=== PATIENT | female | born 1985 | race Caucasian/White ===

== ENCOUNTER 2020-10-22 11:13 | Inpatient (IN) ==
--- OUTSIDE RECORDS SUMMARY | 2020-10-22 11:16 | External Medical Summary | Continuity of Care Document ---
:1985 Author Name Stephy Jain, Provider Address Unavailable Unavailable , Care Team Providers Name Role Phone Bryn Jain, [email or web address] Unavailable Unavailable Assessments Assessed Problems:Acute appendicitis Problems Migraine headache (346.90) (G43.909) Acute appendicitis (540.9) (K35.80) Allergies and Adverse Reactions No Known Drug Allergies (Allergy) Medications Maxalt 10 MG Oral Tablet Start: 015 Refills: 0 Ventolin HFA 108 (90 Base) MCG/ACT Inhalation Aerosol Soluti on; as directed Start: 09-Jul-2015 Refills: 0 Procedures History of Section Status: Comp leted History of Laparoscopic Appendectomy Sta tus: Completed 16-Jun-2015 0:00 Immunizations Immunizations not documented Family History Mother Family history of cardiac disorder (V17.49) (Z82.49) Status: Active Social History - Smoking Status Never smoked tobacco Plan of Treatment Planned Observations Planned Goals not documented Results No Known Results Results not documented Encounters Appointment; David Clemente M.D. 09-Jul-2015 11:20 Encounter Diagnosis: Problem not documented
[2020-10-22] MEDS ORDERED: LORazepam 0.5 MG/1 ML VIAL IV STA ×2 (11:39→21:37)
[2020-10-22] MEDS ORDERED: LEVALBUTEROL 1.25MG/0.5ML NEB INH SCH ×2 (11:45→13:30)
[2020-10-22] MEDS ORDERED: IPRATROPIUM BROMIDE NEB SOLN 0.02% 2.5 ML VIAL INH SCH ×2 (11:45→13:30)
[2020-10-22] MEDS: MAGNESIUM SULFATE / D5W 1 GM/100 ML BAG IV SCH ×2 (12:01→12:09)
[2020-10-22] MEDS: LEVALBUTEROL 1.25MG/0.5ML NEB INH SCH ×3 (12:12→19:37)
[2020-10-22] MEDS: IPRATROPIUM BROMIDE NEB SOLN 0.02% 2.5 ML VIAL INH SCH ×3 (12:13→19:37)
[2020-10-22 12:17] LABS: Basophils # (auto) 0.06 K/uL (0-0.2); Basophils % (auto) 0.5 %; Eosinophils # (auto) 0.13 K/uL (0-0.5); Hematocrit (blood only) 39.4 % (37-47); Hemoglobin 12.9 g/dL (12.0-16.0); Immature Granulocytes # (auto) 0.02 K/uL (0.00-0.02); Immature Granulocytes % (auto) 0.2 %; Lymphocytes # (auto) 0.75 K/uL (1.2-3.4); Lymphocytes % (auto) 5.6 %; Mean Corpuscular Hgb Conc 32.7 g/dL (32-36); Mean Corpuscular Volume 76.4 fL (80-100); Mean Platelet Volume 10.3 fL (7.4-10.4); Monocytes # (auto) 0.84 K/uL (0.11-0.59); Monocytes % (auto) 6.3 %; Neutrophils # (auto) 11.48 K/uL (1.4-6.5); Neutrophils % (auto) 86.4 %; Platelet Count 335 K/uL (130-400); RDW Coefficient of Variation 16.2 % (11.5-14.5); RDW Standard Deviation 44.5 fL (36.4-46.3); Red Blood Count 5.16 M/uL (4.2-5.4); White Blood Count 13.28 K/uL (4.8-10.8)
--- NOTE | 2020-10-22 12:29 | Emergency Department Note ---
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 Home Medications Medication Instructions Recorded Confirmed Type albuterol sulfate 2 inh INHALATION Q4H PRN 10/22/20 10/22/20 History Allergies Allergy/AdvReac Type Severity Reaction Status Date / Time No Known Allergies Allergy Unverified 07/08/13 19:58 Past Med/Surg History Medical History (Updated 10/22/20 @ 16:48 by Brian Mark) Asthma Migraine Surgical History S/P appendectomy Family History Mother Coronary heart disease Father Asthma Social History Smoking Status: Never smoker Hx Alcohol Use: No Hx Substance Use: No Preferred Language: Yoruba Communication Ability: Effective Service Dismantler Required: No Beliefs That Will Affect Care: None Current Living Situation: Spouse and Family Current Living Situation Comment: and 2, kids 13 and 9 Other Information That Helps Us Care for You: No Feels Safe at Home: Yes Safety Concerns: Feels Safe At This Time Assistive Devices: Glasses Review of Systems A total of 10 systems reviewed and were otherwise negative Physical Exam Vital Signs: Vital Signs - 24 hr 10/22/20 11:09 10/22/20 11:11 10/22/20 11:33 Temperature 37.3 C Temperature Source Oral Pulse Rate 153 H Pulse Rate [Finger ] Pulse Rate from Sp O2 Sensor Respiratory Rate 32 H Respiratory Effort / Characteristics Labored Spontaneous Labore d Short of Breath Tripoding Respiratory Depth Respiratory Patter n Tachypnea Blood Pressure 134/91 Blood Pressure Bethany n 105 Pulse Oximetry 89 L 95 Oxygen Delivery Me thod Room Air Nasal Cannula Oxygen Flow Rate 4 Fraction of Inspir ed Oxygen Sepsis Recent Feve r Within 48 Hours No Sepsis New/Unexpla ined Change in Men ra Status No Sepsis Action Take n by Nursing Physician Notified 10/22/20 11:40 10/22/20 12:11 10/22/20 12:14 Temperature Temperature Source Pulse Rate 151 H 137 H Pulse Rate [Finger ] 149 H Pulse Rate from Sp O2 Sensor 154 H 139 H Respiratory Rate 26 H 25 H 24 Respiratory Effort / Characteristics Spontaneous Respiratory Depth Respiratory Patter n Blood Pressure 134/91 121/88 Blood Pressure Bethany n 107 96 Pulse Oximetry 93 98 93 Oxygen Delivery Me thod Nasal Cannula Nasal Cannula Nasal Cannula Oxygen Flow Rate 4 4 5 Fraction of Inspir ed Oxygen Sepsis Recent Feve r Within 48 Hours Sepsis New/Unexpla ined Change in Men ra Status Sepsis Action Take n by Nursing 10/22/20 12:15 10/22/20 12:17 10/22/20 12:30 Temperature Temperature Source Pulse Rate 136 H 155 H Pulse Rate [Finger ] 139 H Pulse Rate from Sp O2 Sensor 153 H Respiratory Rate 20 20 24 Respiratory Effort / Characteristics Spontaneous Spontaneous Respiratory Depth Respiratory Patter n Blood Pressure 117/93 Blood Pressure Bethany n 105 Pulse Oximetry 98 97 95 Oxygen Delivery Me thod BiPAP BiPAP Oxygen Flow Rate Fraction of Inspir ed Oxygen 35 35 Sepsis Recent Feve r Within 48 Hours Sepsis New/Unexpla ined Change in Men ra Status Sepsis Action Take n by Nursing 10/22/20 13:00 10/22/20 13:30 10/22/20 13:49 Temperature Temperature Source Pulse Rate 134 H 131 H Pulse Rate [Finger ] 120 H Pulse Rate from Sp O2 Sensor 132 H 133 H Respiratory Rate 24 20 21 Respiratory Effort / Characteristics Non-Labored Sponta neous Respiratory Depth Respiratory Patter n Blood Pressure 115/87 102/75 Blood Pressure Bethany n 94 81 Pulse Oximetry 95 97 98 Oxygen Delivery Me thod BiPAP BiPAP BiPAP Oxygen Flow Rate Fraction of Inspir ed Oxygen 35 Sepsis Recent Feve r Within 48 Hours Sepsis New/Unexpla ined Change in Men ra Status Sepsis Action Take n by Nursing 10/22/20 13:50 10/22/20 14:00 10/22/20 14:30 Temperature Temperature Source Pulse Rate 125 H 122 H 106 H Pulse Rate [Finger ] Pulse Rate from Sp O2 Sensor 129 H 107 H Respiratory Rate 21 19 22 Respiratory Effort / Characteristics Non-Labored Sponta neous Respiratory Depth Normal Respiratory Patter n Blood Pressure 116/80 113/80 Blood Pressure Bethany n 91 91 Pulse Oximetry 98 96 95 Oxygen Delivery Me thod BiPAP BiPAP Oxygen Flow Rate Fraction of Inspir ed Oxygen 35 Sepsis Recent Feve r Within 48 Hours Sepsis New/Unexpla ined Change in Men ra Status Sepsis Action Take n by Nursing Physical Exam: Physical Exam GENERAL: Distressed. EYES: Conjunctivae and EOM are normal. Pupils are equal, round, and reactive to light. Right eye exhibits no discharge. Left eye exhibits no discharge. No scleral icterus. NECK: Normal range of motion. Neck supple. No JVD present. No spinous process tenderness present. No carotid bruit present. No rigidity. No tracheal deviation and normal range of motion present. No Brudzinski's sign and no Kernig's sign noted. CV: Tachycardic rate, regular rhythm, normal heart sounds and intact distal pulses. There is no peripheral edema. Palpable radial pulses bue. PULM/CHEST: Tachypneic. Respiratory distress. Diffuse bilateral expiratory wheezes. ABD: The abdomen is soft. Bowel sounds are normal. She has no distension. No mass is present. There is no tenderness. There is no rebound, no guarding, no Woods's sign and no tenderness at McBurney's point. Rovsig negative MUSC/SKEL: Normal range of motion. There is no peripheral edema, tenderness or deformity. NEURO: Motor and sensation grossly intact. Course Course 1117: The patient was evaluated in room B8. A complete history and physical exam was performed. Patient was seen in full airborne precautions. Patient was seen in N95's, gloves, gowns, face shield by myself and staff. Patient was placed on continuous pulse oximeter and monitoring tech. Patient was found to be tachycardic with a heart rate between 150 and 160. Patient was found to be hypoxic on room air on 89%. Patient was started on nasal cannula supplemental oxygen which improved her oxygen saturation. Patient's is very tachypneic. Patient will be started on BiPAP to decrease her work of breathing. Patient was also be given Xopenex and Atrovent treatments. Patient also be given magnesium sulfate 2 g IV to help with her asthma exacerbation. Ativan also ordered for the patient. Solu-Medrol was already given by EMS. Cardiac monitoring: An order was placed for continuous cardiac monitoring. The monitor shows a rate of 155 with sinus tachycardia rhythm 1340: Vital signs much improved. Patient's heart rate is now 110. Blood pressure stable. Patient is tolerating BiPAP well. Oxygen saturation is 98% on BiPAP. Patient reports she feels much better on BiPAP and after receiving Xopenex and Atrovent treatments. She is not as tachypneic and no longer having labored breathing. On repeat lung exam the patient continues to have expiratory wheezes. Patient will be given repeat Xopenex and Atrovent treatments. Labs show leukocytosis of 13.28. Potassium 3.3. The patient's COVID-19, influenza, RSV, and chest x-ray are negative. Is thought that the patient is suffering from status asthmaticus. [facility] be continued on Bi[facility]AP [facility]. Administered Medications Potassium Chloride/Sodium Chloride (Normal Saline W/20 Meq Kcl) 20 meq in 1,000 mls @ 150 mls/hr IV .Q6H40M [facility] Stop: 11/21/20 16:14 Last Admin: 10/22/20 16:24 Dose: 150 mls/hr Documented by: [id number] Discontinued Medications Azithromycin (Azithromycin 250 Mg Tab) 500 mg PO NOW ONE Stop: 10/22/20 16:02 Last Admin: 10/22/20 16:23 Dose: 500 mg Documented by: [id number] Magnesium Sulfate/Dextrose (Magnesium Sulfate / D5w) 1 gm in 100 mls @ 600 mls/hr IV Q10M [facility] Stop: 10/22/20 11:55 Last Infusion: 10/22/20 12:29 Dose: 0 mls/hr Documented by: [id number] Admin: 10/22/20 12:09 Dose: 600 mls/hr Documented by: [id number] Infusion: 10/22/20 12:09 Dose: 600 mls/hr Documented by: [id number] Admin: 10/22/20 12:01 Dose: 600 mls/hr Documented by: [id number] Lorazepam (Ativan) 0.5 mg in 1 mls @ 1 mls/min IV NOW STA Stop: 10/22/20 11:40 Last Admin: 10/22/20 12:09 Dose: 1 mls/min Documented by: [id number] Meropenem 500 mg/ Syringe 10 mls @ 2 mls/min IV Q6H [facility]; Protocol Stop: 11/01/20 12:59 Last Admin: 10/22/20 13:30 Dose: 2 mls/min Documented by: [id number] Ipratropium [place] (Ipratropium [place] Neb Soln 0.02% 2.5 Ml Vial) 0.5 mg INH UD [facility] Stop: 11/21/20 11:44 Last Admin: 10/22/20 12:19 Dose: 0.5 mg Documented by: [id number] Admin: 10/22/20 12:13 Dose: 0.5 mg Documented by: [id number] Ipratropium [place] (Ipratropium [place] Neb Soln 0.02% 2.5 Ml Vial) 0.5 mg INH UD [place] Stop: 11/21/20 13:29 Last Admin: 10/22/20 13:49 Dose: 0.5 mg Documented by: [id number] Levalbuterol HCl (Levalbuterol 1.25mg/0.5ml Neb) 1.25 mg INH UD [facility] Stop: 11/21/20 11:44 Last Admin: 10/22/20 12:19 Dose: 1.25 mg Documented by: [id number] Admin: 10/22/20 12:12 Dose: 1.25 mg Documented by: [id number] Levalbuterol HCl (Levalbuterol 1.25mg/0.5ml Neb) 1.25 mg INH UD [place] Stop: 11/21/20 13:29 Last Admin: 10/22/20 13:48 Dose: 1.25 mg Documented by: [id number] Miscellaneous (Xopenex/Atrovent 1.25mg/0.5mg Neb Combo) 1 ea NEB Q6R [facility] Stop: 11/21/20 12:59 Last Admin: 10/22/20 12:20 Dose: Not Given Documented by: [id number] Miscellaneous (Xopenex/Atrovent 1.25mg/0.5mg Neb Combo) 1 ea NEB Q6R [facility] Stop: 11/21/20 12:59 Last Admin: 10/22/20 12:19 Dose: Not Given Documented by: [id number] Potassium Chloride (Potassium Chloride Crtab 20 Meq Tabcr) 20 meq PO NOW ONE Stop: 10/22/20 16:02 Last Admin: 10/22/20 16:24 Dose: 20 meq Documented by: [id number] Medical Decision Making Laboratory Data Result diagrams: 10/22/20 12:06 10/22/20 12:06 Lab Results 10/22/20 10/22/20 10/22/20 Range/Units 11:49 11:49 12:06 WBC 13.28 H (4.8-10.8) K/uL RBC 5.16 (4.2-5.4) M/uL Hgb 12.9 (12.0-16.0) g/dL Hct 39.4 (37-47) % MCV 76.4 L (80-100) fL MCH 25.0 (25-34) pg MCHC 32.7 (32-36) g/dL RDW Std Deviation 44.5 (36.4-46.3) fL RDW Coeff of Apolinar 16.2 H (11.5-14.5) % Plt Count 335 (130-400) K/uL MPV 10.3 (7.4-10.4) fL Immature Gran % (Auto) 0.2 % Neut % (Auto) 86.4 % Lymph % (Auto) 5.6 % Carlton % (Auto) 6.3 % Eos % (Auto) 1.0 % Baso % (Auto) 0.5 % Neut # (Auto) 11.48 H (1.4-6.5) K/uL Lymph # (Auto) 0.75 L (1.2-3.4) K/uL Carlton # (Auto) 0.84 H (0.11-0.59) K/uL Eos # (Auto) 0.13 (0-0.5) K/uL Baso # (Auto) 0.06 (0-0.2) K/uL Immature Gran # (Auto) 0.02 (0.00-0.02) K/uL VBG pH (7.36-7.41) VBG pCO2 (38-50) mmHg VBG pO2 mmHg VBG HCO3 mmol/L VBG O2 Saturation % VBG Base Excess mEq/L Barometric Pressure mm/Hg Sodium (136-145) mmol/L Potassium (3.5-5.1) mmol/L Chloride (98-107) mmol/L Carbon Dioxide (21-32) mmol/L Anion Gap (3-11) BUN (7-18) mg/dl Creatinine (0.6-1.2) mg/dl Est Cr Clr Drug Dosing Est GFR ( Amer) Est GFR (Non-Af Amer) BUN/Creatinine Ratio (10-20) Glucose (70-99) mg/dl Lactate (0.4-2.0) mmol/L Calcium (8.5-10.1) mg/dl Magnesium (1.8-2.4) mg/dl Troponin I (0-0.045) ng/ml Specimen Hemolysis COVID-19 Eval Order CovFluRsv at [facility] COVID-19 PCR NEGATIVE (Negative) Influenza Type A (PCR) Negative (Neg) Influenza Type B (PCR) Negative (Neg) RSV (RT-PCR) Negative (Neg) 10/22/20 10/22/20 10/22/20 Range/Units 12:06 12:44 12:44 WBC (4.8-10.8) K/uL RBC (4.2-5.4) M/uL Hgb (12.0-16.0) g/dL Hct (37-47) % MCV (80-100) fL MCH (25-34) pg MCHC (32-36) g/dL RDW Std Deviation (36.4-46.3) fL RDW Coeff of Apolinar (11.5-14.5) % Plt Count (130-400) K/uL MPV (7.4-10.4) fL Immature Gran % (Auto) % Neut % (Auto) % Lymph % (Auto) % Carlton % (Auto) % Eos % (Auto) % Baso % (Auto) % Neut # (Auto) (1.4-6.5) K/uL Lymph # (Auto) (1.2-3.4) K/uL Carlton # (Auto) (0.11-0.59) K/uL Eos # (Auto) (0-0.5) K/uL Baso # (Auto) (0-0.2) K/uL Immature Gran # (Auto) (0.00-0.02) K/uL VBG pH 7.35 L (7.36-7.41) VBG pCO2 43 (38-50) mmHg VBG pO2 31 mmHg VBG HCO3 23 mmol/L VBG O2 Saturation < 60.0 % VBG Base Excess -2.4 mEq/L Barometric Pressure 734.0 mm/Hg Sodium 139 (136-145) mmol/L Potassium 3.3 L (3.5-5.1) mmol/L Chloride 108 H (98-107) mmol/L Carbon Dioxide 26 (21-32) mmol/L Anion Gap 5.0 (3-11) BUN 6 L (7-18) mg/dl Creatinine 0.75 (0.6-1.2) mg/dl Est Cr Clr Drug Dosing Not Reportable Est GFR ( Amer) 120.5 Est GFR (Non-Af Amer) 104.0 BUN/Creatinine Ratio 7.4 L (10-20) Glucose 100 H (70-99) mg/dl Lactate 2.0 (0.4-2.0) mmol/L Calcium 8.9 (8.5-10.1) mg/dl Magnesium 2.3 (1.8-2.4) mg/dl Troponin I < 0.015 (0-0.045) ng/ml Specimen Hemolysis COVID-19 Eval Order COVID-19 PCR (Negative) Influenza Type A (PCR) (Neg) Influenza Type B (PCR) (Neg) RSV (RT-PCR) (Neg) Imaging Data Radiologist's Impression: XR chest 1V portable HISTORY: 35 years-old Female addi acute shortness of breath COMPARISON: CT abdomen pelvis 06/15/2015 TECHNIQUE: Portable AP view of the chest FINDINGS: Cardiomediastinal and hilar silhouettes are within normal limits. No pneumothorax, pleural effusion, airspace consolidation or overt pulmonary edema. Bones of the chest appear grossly intact. IMPRESSION: No acute process. ACT 112: Negative or not required by law. The above report was generated using voice recognition software. It may contain grammatical, syntax or spelling errors. Electronically signed by: Antonio Schaffer M.D. 10/22/2020 1:20 PM Dictated: 10/22/201318Transcribed: 10/22/201318 ECG Data Attestation: I personally reviewed and interpreted this ECG as follows: (EKG#1 at 1124: Sinus tachycardia with a rate of 149. No ST elevation or ST depression. Baseline wander due to patient difficulty breathing. EKG #2 at 1321: Sinus tachycardia with a rate of 123. RI QRS and QTc intervals within normal limits. No ST elevation or ST depression.) [facility] Narrative 1117: The patient was evaluated in room B8. A complete history and physical exam was performed. Patient was seen in full airborne precautions. Patient was seen in N95's, gloves, gowns, face shield by myself and staff. Patient was placed on continuous pulse oximeter and monitoring tech. Patient was found to be tachycardic with a heart rate between 150 and 160. Patient was found to be hypoxic on room air on 89%. Patient was started on nasal cannula supplemental oxygen which improved her oxygen saturation. Patient's is very tachypneic. Patient will be started on BiPAP to decrease her work of breathing. Patient was also be given Xopenex and Atrovent treatments. Patient also be given magnesium sulfate 2 g IV to help with her asthma exacerbation. Ativan also ordered for the patient. Solu-Medrol was already given by EMS. Cardiac monitoring: An order was placed for continuous cardiac monitoring. The monitor shows a rate of 155 with sinus tachycardia rhythm 1340: Vital signs much improved. Patient's heart rate is now 110. Blood pressure stable. Patient is tolerating BiPAP well. Oxygen saturation is 98% on BiPAP. Patient reports she feels much better on BiPAP and after receiving Xo penex and Atrovent treatments. She is not as tachypneic and no longer having labored breathing. On repeat lung exam the patient continues to have expiratory wheezes. Patient will be given repeat Xopenex and Atrovent treatments. Labs show leukocytosis of 13.28. Potassium 3.3. The patient's COVID-19, influenza, RSV, and chest x-ray are negative. Is thought that the patient is suffering from status asthmaticus. Patient will be continued on BiPAP [facility]. Impression & Plan Hypoxia, Status asthmaticus Critical Care Time Critical Care Time: Yes Total Critical Care Time: 74 I have personally spent greater than 74 minutes of critical care time in the direct management of this patient. This includes bedside care, interpretation of diagnostic studies, and testing, discussion with consultants, patient, and family members, and other required patient management activities. This 74 m inutes is in excess of all separately billable procedures. Discharge Plan Visit Data Chief Complaint: Shortness of Breath/Dyspnea Stated Complaint: SOB hx asthma ED Provider: Brian Mark Discharge Problem: Hypoxia, Status asthmaticus Patient Disposition: Admitted As Inpatient Discharge Instructions Interventions: ED Discharge Assessment Last Done: 10/22/20 15:56 Discharge Problem: Status asthmaticus Qualifiers: Asthma severity: severe Asthma persistence: persistent Qualified Code(s): J45.52 - Severe persistent asthma with status asthmaticus
[2020-10-22 12:35] LABS: BUN Creatinine Ratio 7.4 (10-20); Blood Urea Nitrogen 6 mg/dl (7-18); Calcium 8.9 mg/dl (8.5-10.1); Carbon Dioxide 26 mmol/L (21-32); Chloride 108 mmol/L (98-107); Est GFR (African American) 120.5; Glucose 100 mg/dl (70-99); Magnesium 2.3 mg/dl (1.8-2.4); Potassium 3.3 mmol/L (3.5-5.1); Sodium 139 mmol/L (136-145)
[2020-10-22 12:46] LABS: Influenza A virus by PCR Negative (Neg); Influenza B virus by PCR Negative (Neg); RSV by PCR Negative (Neg); SARS CoV2 RNA(COVID-19) InHosp NEGATIVE (Negative)
[2020-10-22 12:47] LABS: Troponin I < 0.015 ng/ml (0-0.045)
[2020-10-22] MEDS ORDERED: MEROPENEM CONSULT ACITVE PRN (12:48)
[2020-10-22] MEDS ORDERED: MEROPENEM 500 MG in SYRINGE 0 ML IV SCH (13:00)
[2020-10-22] MEDS ORDERED: XOPENEX/ATROVENT 1.25mg/0.5MG NEB COMBO NEB SCH ×4 (13:00→19:00)
[2020-10-22 13:09] LABS: Base Excess VBG -2.4 mEq/L; HCO3 VBG 23 mmol/L; PCO2 VBG 43 mmHg (38-50); PO2 VBG 31 mmHg; pH VBG 7.35 (7.36-7.41)
--- NOTE | 2020-10-22 13:21 | XRay Report ---
XR chest 1V portable HISTORY: 35 years-old Female addi acute shortness of breath COMPARISON: CT abdomen pelvis 06/15/2015 TECHNIQUE: Portable AP view of the chest FINDINGS: Cardiomediastinal and hilar silhouettes are within normal limits. No pneumothorax, pleural effusion, airspace consolidation or overt pulmonary edema. Bones of the chest appear grossly intact. IMPRESSION: No acute process. ACT 112: Negative or not required by law. The above report was generated using voice recognition software. It may contain grammatical, syntax o r spelling errors. Electronically signed by: Antonio Schaffer M.D. 10/22/2020 1:20 PM
[2020-10-22 13:38] LABS: Oxygen Saturation VBG < 60.0 %
--- NOTE | 2020-10-22 14:47 | History & Physical Report ---
Date of Service October 22, 2020 Assessment & Plan (1) Exacerbation of asthma: Exacerbation of asthma. Very bronchospastic and tachypneic at time of presentation. Hypoxic with O2 sat of 89% on RA. Somewhat better after receiving nebs, IV methylprednisolone, BiPAP. Clinical history suggests a viral infection. Resp panel for SARS-CoV-2, influenza A&B, and RSV negative. No infiltrates on chest x-ray. Consider additional testing for respiratory track pathogens with [employer] resp panel if status worsens. Continue nebs, steroids, O2. Received meropenem in ED. Low risk for gram negative infections. Will treat with azithromycin for possible bacterial infection. Continue supplemental O2 as needed. Continue BiPAP as needed. Monitor peak expiratory flow rates. (2) Hypokalemia: K 3.3. PO and IV repletion. Follow. (3) DVT prophylaxis: Low-moderate risk for VTE. SQ enoxaparin. Ambulate. (4) Discharge planning issues: Anticipated discharge to home. Primary care follow-up with Dr. Rodriguez. History of Present Illness Chief Complaint: wheezing, SOB Primary Care Provider: Gurwinder Rodriguez MD 35 YO female followed by Dr. Rodriguez for primary care. History of asthma. Never intubated. Exacerbations usually triggered by seasonal allergies or chemical irritants. Last severe exacerbation was years ago. 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 No known sick contacts among patients or family. Developed rhinorrhea and pharyngitis 3 days prior to admission. Subsequently developed cough, wheezing, dyspnea. No fever. No chest pain. No nausea, vomiting, diarrhea. No myalgias. Tried albuterol inhaler without much benefit. Cough, wheezing, shortness of breath much worse today. Called EMS. Received O2, Duoneb, IV methylprednisolone. Upon arrival to ED she was tachypneic, tachycardic, and hypoxic (89% on RA). BiPAP was applied. She received levalbuterol / ipratropium nebs and IV magnesium sulfate with some improvement of her symptoms. Allergies Allergy/AdvReac Type Severity Reaction Status Date / Time No Known Allergies Allergy Unverified 07/08/13 19:58 Home Medications Medication Instructions Recorded Confirmed Type albuterol sulfate 2 inh INHALATION Q4H PRN 10/22/20 10/22/20 History Past Med/Surg History Medical History Asthma Migraine Surgical History S/P appendectomy Family History Mother Coronary heart disease Father Asthma Social History Smoking Status: Never smoker Hx Alcohol Use: No Hx Substance Use: No Preferred Language: Pashto Communication Ability: Effective Arson Investigator Required: No Beliefs That Will Affect Care: None Current Living Situation: Spouse and Family Current Living Situation Comment: and 2, kids 13 and 9 Other Information That Helps Us Care for You: No Feels Safe at Home: Yes Safety Concerns: Feels Safe At This Time Assistive Devices: Glasses Review of Systems Constitutional: as per Subjective / HPI Eyes: no worsening vision Ear, Nose, Mouth, Throat: as per Subjective / HPI Respiratory: as per Subjective / HPI Cardiovascular: no chest pain Gastrointestinal: no nausea, no vomiting, no constipation, no diarrhea/loose stools, no blood in stools and no melena Genitourinary: no dysuria Musculoskeletal: no joint pain and no myalgia Integumentary: no rash Neurologic: + headache(s) (migraine) Endocrine: no polydipsia and no polyuria Hematologic / Lymphatic: no easy bleeding, no easy bruising and no lymphadenopathy Physical Exam Physical Exam: VS- as noted Constitutional- well nourished; tachypneic, wearing BiPAP Eyes- PERRL, anicteric sclerae, conjunctivae normal ENMT- external ear and nose normal; oropharynx clear; dentition good Neck- trachea midline; no thyromegaly Respiratory- diffuse moderate wheezing with prolonged expiration Cardiovascular- RRR, tachycardic, no murmur/gallop/rub; no JVD; no pretibial edema; normal capillary refill Abdomen- normal bowel sounds, soft, nontender, nondistended; no palpable masses or hepatosplenomegaly Musculoskeletal- no cyanosis Skin- warm & dry; normal color; no rashes Psychiatric- alert, oriented x 3; normal affect Lymphatic- no cervical adenopathy Results & Data Results & Data ([facility]) Vital Signs (Past 12 Hours) Vital Signs Temp Pulse Pulse Resp BP Pulse Ox 10/22/20 14:00 122 H 19 116/80 96 10/22/20 13:50 125 H 21 98 10/22/20 13:49 120 H 21 98 10/22/20 13:30 131 H 20 102/75 97 10/22/20 13:00 134 H 24 115/87 95 10/22/20 12:30 155 H 24 117/93 95 10/22/20 12:17 139 H 20 97 10/22/20 12:15 136 H 20 98 10/22/20 12:14 149 H 24 93 10/22/20 12:11 137 H 25 H 121/88 98 10/22/20 11:40 151 H 26 H 134/91 93 10/22/20 11:33 95 10/22/20 11:09 37.3 C 153 H 32 H 134/91 89 L Laboratory Results Laboratory Results - last 24 hr 10/22/20 10/22/20 10/22/20 11:49 11:49 12:06 WBC 13.28 H RBC 5.16 Hgb 12.9 Hct 39.4 MCV 76.4 L MCH 25.0 MCHC 32.7 RDW Std Deviation 44.5 RDW Coeff of Apolinar 16.2 H Plt Count 335 MPV 10.3 Immature Gran % (Auto) 0.2 Neut % (Auto) 86.4 Lymph % (Auto) 5.6 Williams % (Auto) 6.3 Eos % (Auto) 1.0 Baso % (Auto) 0.5 Neut # (Auto) 11.48 H Lymph # (Auto) 0.75 L Williams # (Auto) 0.84 H Eos # (Auto) 0.13 Baso # (Auto) 0.06 Immature Gran # (Auto) 0.02 VBG pH VBG pCO2 VBG pO2 VBG HCO3 VBG O2 Saturation VBG Base Excess Barometric Pressure Sodium Potassium Chloride Carbon Dioxide Anion Gap BUN Creatinine Est Cr Clr Drug Dosing Est GFR ( Amer) Est GFR (Non-Af Amer) BUN/Creatinine Ratio Glucose Lactate Calcium Magnesium Troponin I Specimen Hemolysis COVID-19 Eval Order [facility] at [facility] COVID-19 PCR NEGATIVE Influenza Type A (PCR) Negative Influenza Type B (PCR) Negative RSV (RT-PCR) Negative 10/22/20 10/22/20 10/22/20 12:06 12:44 12:44 WBC RBC Hgb Hct MCV MCH MCHC RDW Std Deviation RDW Coeff of Apolinar Plt Count MPV Immature Gran % (Auto) Neut % (Auto) Lymph % (Auto) Williams % (Auto) Eos % (Auto) Baso % (Auto) Neut # (Auto) Lymph # (Auto) Williams # (Auto) Eos # (Auto) Baso # (Auto) Immature Gran # (Auto) VBG pH 7.35 L VBG pCO2 43 VBG pO2 31 VBG HCO3 23 VBG O2 Saturation < 60.0 VBG Base Excess -2.4 Barometric Pressure 734.0 Sodium 139 Potassium 3.3 L Chloride 108 H Carbon Dioxide 26 Anion Gap 5.0 BUN 6 L Creatinine 0.75 Est Cr Clr Drug Dosing Not Reportable Est GFR ( Amer) 120.5 Est GFR (Non-Af Amer) 104.0 BUN/Creatinine Ratio 7.4 L Glucose 100 H Lactate 2.0 Calcium 8.9 Magnesium 2.3 Troponin I < 0.015 Specimen Hemolysis COVID-19 Eval Order COVID-19 PCR Influenza Type A (PCR) Influenza Type B (PCR) RSV (RT-PCR) Diagnostic Findings PORTABLE CHEST X-RAY Reviewed by the undersigned and formally interpreted by Radiology: FINDINGS: Cardiomediastinal and hilar silhouettes are within normal limits. No pneumothorax, pleural effusion, airspace consolidation or overt pulmonary edema. Bones of the chest appear grossly intact. IMPRESSION: No acute process. Electronically signed by: Antonio Schaffer M.D. 10/22/2020 1:20 PM ECG Additional Comments: EKG performed at 1124 reviewed and demonstrated narrow complex tachycardia at 150 / min, slight ST depression in inferior and lateral leads. EKG performed at [address] at 123 / min, no acute changes. Code Status & VTE Plan Code Status full code VTE Prophylaxis Plan VTE Prophylaxis will be ordered: Yes
[2020-10-22] MEDS ORDERED: LEVALBUTEROL HCL 0.63 MG/3 ML NEB NEB PRN (16:01)
[2020-10-22] MEDS ORDERED: POTASSIUM CHLORIDE CRTAB 20 MEQ TABCR PO ONE (16:01)
[2020-10-22] MEDS ORDERED: AZITHROMYCIN 250 MG TAB PO ONE (16:01)
[2020-10-22] MEDS ORDERED: PATIENT'S HEIGHT AND/OR WEIGHT NEEDED SCH (16:15)
[2020-10-22] MEDS: NSS + 20MEQ KCL 20 MEQ/1,000 ML BAG IV SCH ×2 (16:24→23:36)
[2020-10-22] MEDS ORDERED: ENOXAPARIN INJ 40 MG/0.4 ML SYR SQ SCH (21:00)
[2020-10-22] MEDS: methylPREDNISolone 40 MG in SYRINGE 0 ML IV SCH (21:11)
[2020-10-22] MEDS ORDERED: LORazepam 0.5 MG TAB PO PRN (21:38)
[2020-10-23] MEDS: IPRATROPIUM BROMIDE NEB SOLN 0.02% 2.5 ML VIAL INH SCH ×3 (00:43→13:35)
[2020-10-23] MEDS: LEVALBUTEROL 1.25MG/0.5ML NEB INH SCH ×3 (00:43→13:35)
[2020-10-23] MEDS: NSS + 20MEQ KCL 20 MEQ/1,000 ML BAG IV SCH ×2 (06:08→12:00)
[2020-10-23] MEDS: methylPREDNISolone 40 MG in SYRINGE 0 ML IV SCH ×2 (06:08→13:54)
[2020-10-23 08:29] LABS: BUN Creatinine Ratio 14.7 (10-20); Calcium 8.5 mg/dl (8.5-10.1); Creatinine Clr Calc Pharmacy 129.8 ml/min; Est GFR (African American) 146.4; Est GFR (Non-African American) 126.3
[2020-10-23] MEDS: AZITHROMYCIN 250 MG TAB PO SCH (09:07)
--- NOTE | 2020-10-23 15:38 | Hospitalist Progress Note ---
Date of Service October 23, 2020 Assessment & Plan (1) Exacerbation of asthma: Exacerbation of asthma. hx of childhood asthma , controlled with PRN inhalers admitted with respiratory failure Hypoxic with O2 sat of 89% on RA. symptoms resolved after IV solumedrol , Neb tx no wheeze or cough today remains in room air Resp panel for SARS-CoV-2, influenza A&B, and RSV negative. pt was kept on air borne precaution as COVID 19 test specimen was obtained while pt was in resp distress Nursing concerned that adequate sampling was not obtained repeat COVID 19 test ordered DC Airbone isolation if test negative No infiltrates on chest x-ray. will change Steroid to PO Prednisone on azithromycin for possible Bronchitis (2) Hypokalemia: corrected (3) DVT prophylaxis: Low- risk for VTE. d/c SQ enoxaparin. scd and teds Ambulate. (4) Discharge planning issues: Anticipated discharge to home. Primary care follow-up with Dr. Rodriguez. Admission and Anticipated Discharge Date Admission Date: October 22, 2020 Subjective Follow up visit for acute Asthma exacerbation : feels much better , SOB ,wheeze has improved markedly in room air no fever or chills , no cough no headache or nasal congestion today Review of Systems Constitutional: no fever and no chills Ear, Nose, Mouth, Throat: no ear pain, no nasal congestion and no post nasal drip Respiratory: no cough, no dyspnea and no wheezing Physical Exam Constitutional: WD/WN, vitals as above Eyes: PERRL, conjunctivae normal, anicteric sclerae ENMT: external ear and nose normal, oropharynx normal Neck: trachea midline, no thyromegaly Respiratory: Auscultation: + diminished lung sounds; no crackles and no wheezes Cardiovascular: RRR, no murmur, no edema Gastrointestinal (Abdomen): normal bowel sounds, soft, nontender, no hep atosplenomegaly Musculoskeletal: no cyanosis or clubbing, extremities motor strength 5/5 Skin: no rashes, warm and dry Neurologic: PERRL, EOMI, accommodation nl, no face palsy, no dysarthria Psychiatric: A+Ox3, euthymic affect Results & Data Results & Data ([facility]) Vital Signs (Past 12 Hours) Vital Signs Temp Pulse Pulse Resp BP Pulse Ox 10/23/20 15:30 37.1 C 105 H 18 127/75 95 10/23/20 13:36 114 H 20 96 10/23/20 09:00 103 H 10/23/20 07:59 114 H 18 99 10/23/20 07:08 37 C 114 H 18 118/72 99
[2020-10-23 16:43] LABS: Influenza A virus by PCR Negative (Neg); Influenza B virus by PCR Negative (Neg); RSV by PCR Negative (Neg); SARS CoV2 RNA(COVID-19) InHosp NEGATIVE (Negative)
--- NOTE | 2020-10-23 16:58 | Communication Note ---
Date of Service: October 23, 2020 Attending note : repeat COVID 19 test negative D/c Airborne isolation pt is transferred to Medical tele Ivonne Frey MD
[2020-10-23] MEDS: IPRATROPIUM BROMIDE NEB SOLN 0.02% 2.5 ML VIAL INH PRN (21:02)
[2020-10-23] MEDS: LEVALBUTEROL 1.25MG/0.5ML NEB INH PRN (21:02)
--- NOTE | 2020-10-23 21:30 | Electrocardiogram Report ---
Test Reason : Blood Pressure : / mmHG Vent. Rate : 149 BPM Atrial Rate : 153 BPM P-R Int : 000 ms QRS Dur : 070 ms QT Int : 336 ms P-R-T Axes : 000 077 062 degrees QTc Int : 529 ms Poor data quality, interpretation may be adversely affected Sinus tachycardia Nonspecific ST and T wave abnormality Abnormal ECG No previous ECGs available Confirmed by Beny Disla ([id number]) on 10/23/2020 9:29:55 PM Referred By: REFERRED SELF Confirmed By:Beny Disla
--- NOTE | 2020-10-23 21:31 | Electrocardiogram Report ---
Test Reason : Blood Pressure : / mmHG Vent. Rate : 123 BPM Atrial Rate : 123 BPM P-R Int : 152 ms QRS Dur : 082 ms QT Int : 298 ms P-R-T Axes : 078 080 042 degrees QTc Int : 426 ms Sinus tachycardia Biatrial enlargement Abnormal ECG When compared with ECG of 22-OCT-2020 11:24, (unconfirmed) No significant change was found Confirmed by Beny Disla ([id number]) on 10/23/2020 9:31:15 PM Referred By: REFERRED SELF Confirmed By:Beny Disla
[2020-10-24] MEDS: LEVALBUTEROL 1.25MG/0.5ML NEB INH PRN (07:28)
[2020-10-24] MEDS: IPRATROPIUM BROMIDE NEB SOLN 0.02% 2.5 ML VIAL INH PRN (07:28)
[2020-10-24] MEDS: AZITHROMYCIN 250 MG TAB PO SCH (08:14)
[2020-10-24] MEDS ORDERED: predniSONE 20 MG TAB PO SCH (09:00)
--- NOTE | 2020-10-24 09:18 | Discharge Summary ---
Date of Service October 24, 2020 Admission HPI Per Admitting Provider 35 YO female followed by Dr. Rodriguez for primary care. History of asthma. Never intubated. Exacerbations usually triggered by seasonal allergies or chemical irritants. Last severe exacerbation was years ago. 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 No known sick contacts among patients or family. Developed rhinorrhea and pharyngitis 3 days prior to admission. Subsequently developed cough, wheezing, dyspnea. No fever. No chest pain. No nausea, vomiting, diarrhea. No myalgias. Tried albuterol inhaler without much benefit. Cough, wheezing, shortness of breath much worse today. Called EMS. Received O2, Duoneb, IV methylprednisolone. Upon arrival to ED she was tachypneic, tachycardic, and hypoxic (89% on RA). BiPAP was applied. She received levalbuterol / ipratropium nebs and IV magnesium sulfate with some improvement of her symptoms. Principal Diagnosis Asthma exacerbation-resolved Discharge Exam Constitutional WD/WN, vitals as above Eyes PERRL, conjunctivae normal, anicteric sclerae ENMT external ear and nose normal, oropharynx normal Neck trachea midline, no thyromegaly Respiratory Auscultation: + diminished lung sounds; no crackles and no wheezes Cardiovascular RRR, no murmur, no edema Gastrointestinal (Abdomen) normal bowel sounds, soft, nontender, no hepatosplenomegaly Musculoskeletal no cyanosis or clubbing, extremities motor strength 5/5 Skin no rashes, warm and dry Neurologic PERRL, EOMI, accommodation nl, no face palsy, no dysarthria Psychiatric A+Ox3, euthymic affect Discharge Data Allergies Allergy/AdvReac Type Severity Reaction Status Date / Time No Known Allergies Allergy Unverified 07/08/13 19:58 Consultations 10/22/20 13:40 ED Decision to Admit Stat Hospital Course (1) Exacerbation of asthma: Exacerbation of asthma. Patient status improved to baseline hx of childhood asthma , controlled with PRN inhalers admitted with respiratory failure Hypoxic with O2 sat of 89% on RA. symptoms resolved after IV solumedrol , Neb tx Changed to p.o. prednisone will be discharged on tapered dose no wheeze or cough today remains in room air Resp panel for SARS-CoV-2, influenza A&B, and RSV negative. Complete p.o. azithromycin for possible Bronchitis (2) Hypokalemia: corrected (3) DVT prophylaxis: Low- risk for VTE. scd and teds Ambulate. (4) Discharge planning issues: Will be discharged home today Primary care follow-up with Dr. Rodriguez. Total Time Total Time Spent Total Time Spent (In Minutes): 35 minutes Total Time Includes: Examination of the Patient, Discharge Planning and Medication Reconciliation Discharge Plan Discharge Items Patient Disposition: Home - Self-Care Reason For Visit: ASTHMA EXACERBATION Discharge Diagnosis: Asthma exacerbation Activity: Resume your previous activity Non-emergency contact: Primary Care Provider Call non-emergency contact if: you have any medication questions Follow-up/Referrals: David Fuentes [Physician] - (Follow up with medical program specialist ) Gurwinder Rodriguez MD [Primary Care Provider] - (Hospital follow-up in 1 week) Diet: Regular Addtl Attending Provider Instructions: Follow-up with your family physician in a week, as discussed at about" asthma rescue kit" Need to have a formal lung function test Follow-up with medical program specialist to assess trigger for severe asthma attack Pending Studies at Discharge: No Stand-Alone Forms: My [facility] Outright, Smoking Cessation Medications and DC Order Prescriptions: New albuterol sulfate 1.25 mg/3 mL solution for nebulization 1.25 mg inhalation Q4H PRN (Reason: bronchospasm) Qty: 90 RF: 3 azithromycin [Zithromax] 500 mg tablet 500 mg PO DAILY 3 Days Qty: 3 RF: 0 prednisone 10 mg tablet 30 mg PO UD Qty: 12 RF: 0 Continued albuterol sulfate 90 mcg/actuation HFA aerosol inhaler 2 inh INHALATION Q4H PRN (Reason: Wheezing) RF: 0 Discharge Orders: Discharge Order (Routine); Ordered 10/24/20 Ordered By: Ivonne Frey Admission Data Admit Date/Time: 10/22/20 14:47 Attending Provider: Ivonne Frey Admit Provider: Jc Ivan Primary Care Provider: Gurwinder Rodriguez Other Providers: Jc Ivan Other Interventions: Discharge Summary Assessment (RN) Last Done: 10/24/20 09:18
== END 2020-10-24 10:16 | disposition home or self-care (01) | DRG 202 ==
LOC: ED 11:13 → SUATTDRO 14:47 → 2S 14:47 → 2N 10-23 16:57